=== PATIENT | male | born 1995 | race African-American/Black ===

== ENCOUNTER 2019-10-29 12:44 | Emergency (ER) | payer SELFPAY ==
[~2019-10-29] VITALS: Ht 180.3 cm; Wt 85.0 kg
--- NOTE | 2019-10-29 13:36 | RAD ---
Examination: PORTABLE CHEST 1V History: Reason: WEAKNESS / Spl. Instructions: / History: Comparison/Correlation: None Findings: Portable upright frontal view chest was obtained. Heart size and pulmonary vessels are normal. No infiltrate or pleural effusion. No pneumothorax. Bony structures are unremarkable. Impression: No active disease. Electronically signed by: Rafael Zarco MD (10/29/2019 1:33 PM) [id number]
[2019-10-29 13:54] LABS: CALCIUM 8.3 mg/dL (8.5-10.1); GFR 113.1; POTASSIUM 3.6 mmol/L (3.5-5.1)
[2019-10-29 13:55] LABS: BASO # 0.1 x10^3/uL (0.0-0.2); BASO % 1 % (0-3); EOS # 0.4 x10^3/uL (0.0-0.7); EOS % 4 % (0-3); HEMATOCRIT 36.4 % (39.0-53.0); HEMOGLOBIN 12.9 g/dL (13.0-17.5); LYMPH # 2.5 x10^3/uL (1.0-4.8); LYMPH % 25 % (24-48); MEAN CORPUSCULAR HEMOGLOBIN 31 pg (25-35); MEAN CORPUSCULAR HGB CONC 35 g/dL (31-37); MEAN CORPUSCULAR VOLUME 89 fL (79-100); MONO # 1.3 x10^3/uL (0.0-1.1); MONO % 13 % (0-9); NEUT # 5.6 x10^3/uL (1.8-7.7); NEUT % 57 % (31-73); PLATELET COUNT 267 x10^3/uL (140-400); RED BLOOD COUNT 4.09 x10^6/uL (4.30-5.70); RED CELL DISTRIBUTION WIDTH 12.1 % (11.5-14.5); WHITE BLOOD COUNT 9.8 x10^3/uL (4.0-11.0)
[2019-10-29 14:01] LABS: ALBUMIN 3.3 g/dL (3.4-5.0); ALBUMIN/GLOBULIN RATIO 1.1 (1.0-1.7); C-REACTIVE PROTEIN 25.3 mg/L (0-3.3); TOTAL BILIRUBIN 6.4 mg/dL (0.2-1.0); TOTAL PROTEIN 6.4 g/dL (6.4-8.2)
[2019-10-29 15:05] LABS: % ATYL 3 % (0-0); % BANDS 13 % (0-9); % EOS 4 % (0-5); % LYMPHS 26 % (24-48); % MONOS 11 % (0-10); % SEGS 43 % (35-66)
[2019-10-29 15:06] LABS: PLT ESTIMATE ADEQUATE (ADEQUATE)
[2019-10-29] MEDS ORDERED: IOHEXOL 350 MG/ML 100 ML VIAL. IV ONE (15:15)
[2019-10-29] MEDS ORDERED: CONTRAST GIVEN. MC PRN (15:30)
[2019-10-29 16:25] LABS: BILIRUBIN,URINE LARGE (NEG); CLARITY,URINE CLEAR; PH,URINE 7.5 (<5.0-8.0); PROTEIN,URINE 30 mg/dL (NEG-TRACE)
[2019-10-29 16:27] LABS: COLOR,URINE AMBER
[2019-10-29 16:33] LABS: BACTERIA,URINE 0 /HPF (0-FEW); RBC,URINE 0 /HPF (0-2); WBC,URINE OCC /HPF (0-4)
[2019-10-29] MEDS ORDERED: IV NORMAL SALINE 1000ML BAG 1,000 ML IV ONE ×2 (17:00→18:15)
[2019-10-29 17:18] LABS: DIRECT BILIRUBIN 5.3 mg/dL (0.0-0.2)
[2019-10-29 17:22] LABS: MONONUCLEOSIS PATIENT NEGATIVE (NEGATIVE)
--- NOTE | 2019-10-29 17:28 | RAD ---
ABDOMEN LTD History: Elevated liver function tests Comparison: None. Findings: Multiple sonographic images of the abdomen are submitted. There is no abnormality of the visualized pancreas, tail not as well-visualized due to bowel gas. Right kidney measured 12.2 x 5.9 x 4.2 cm, no hydronephrosis. Gallbladder is present, filled with internal echogenicity likely due to sludge and gallstones. There is no pericholecystic fluid. Hepatic echogenicity is within normal limits. Right lobe of the liver measured 15.7 cm longitudinal. Common bile duct duct is within normal limits about 0.5 cm. There is segmental visualization of the inferior vena cava. Impression: 1. Gallbladder is filled with echogenicity likely due to sludge and gallstones, no biliary ductal dilatation. Electronically signed by: Brayan Churchill MD (10/29/2019 5:25 PM) [facility]
[2019-10-29] MEDS ORDERED: GUAI118L13 PO (18:00)
[2019-10-29] MEDS ORDERED: ONDA4TAB7 PO (18:00)
--- NOTE | 2019-10-29 18:00 | PHYS DOC ---
Past Medical History Past Medical History: No Pertinent History Past Surgical History: No Surgical History Smoking Status: Never Smoker Alcohol Use: None General Adult EDM: Chief Complaint: WEAKNESS/GENERALIZED HPI: HPI: Patient is a 24 year old previously healthy male who presents with sore throat, cough, body aches, fever, nausea, vomiting, diarrhea, abdominal pain. Patient initially started feeling bad about a week ago. This is his third visit to the hospital for the symptoms. He has had multiple negative coronavirus tests in the past week. He has had a CT angiogram at [facility] that was -2 days ago. He states he continues to feel bad and worn down. He started having belly problems this morning. He states he is able to walk long distances without any difficulty. Review of Systems: Review of Systems: General: Reports fever, chills, sweats, fatigue Eyes: Denies drainage, blurred vision, eye redness HENT: Reports rhinorrhea, sore throat, earache Respiratory: Reports cough, shortness of breath, wheezing Cardiac: Denies edema, palpitations. Reports chest pain GI: Reports nausea, vomiting, diarrhea, abdominal pain MSK: Denies neck pain, back pain Skin: Denies rash, jaundice Neuro: Denies headache, dizziness Psychiatric: Denies SI/HI Heart Score: Risk Factors: Risk Factors: DM, Current or recent (<one month) smoker, HTN, HLP, family history of CAD, obesity. Risk Scores: Score 0 - 3: 2.5% MACE over next 6 weeks - Discharge Home Score 4 - 6: 20.3% MACE over next 6 weeks - Admit for Clinical Observation Score 7 - 10: 72.7% MACE over next 6 weeks - Early Invasive Strategies Current Medications: Current Medications Medications (Trade) Dose Ordered Sig/Ranjana Start Time Stop Time Status Last Admin Dose Admin Info (CONTRAST GIVEN -- Rx MONITORING) 1 each PRN DAILY PRN 10/29/19 15:30 10/31/19 15:29 Iohexol (Omnipaque 350 Mg/ml) 100 ml 1X ONCE 10/29/19 15:15 10/29/19 15:16 DC Sodium Chloride 1,000 ml @ 1,000 mls/hr 1X ONCE 10/29/19 17:00 10/29/19 17:59 Allergies: Allergies: Allergies Coded Allergies Type Severity Reaction Last Updated Verified No Known Drug Allergies 10/29/19 No Physical Exam: PE: General: Awake, alert, NAD. Well Nourished, well hydrated. Cooperative HEENT: Atraumatic, EOMI, PERRL, airway patent, moist oral mucosa Neck: Supple, trachea midline, lymphadenopathy Respiratory: CTA bilaterally, normal effort, no wheezing/crackles CV: RRR, no murmur, cap refill <2 GI: Soft, nondistended, minimal tenderness, no masses MSK: No obvious deformities Skin: Warm, dry, intact Neuro: A&O x3, speech NL, sensory and motor grossly intact, no focal deficits Psych: Normal affect, normal mood, not suicidal or homicidal Current Patient Data: Labs: Laboratory Tests Test 10/29/19 13:30 10/29/19 16:15 White Blood Count 9.8 x10^3/uL (4.0-11.0) Red Blood Count 4.09 x10^6/uL (4.30-5.70) L Hemoglobin 12.9 g/dL (13.0-17.5) L Hematocrit 36.4 % (39.0-53.0) L Mean Corpuscular Volume 89 fL (79-100) Mean Corpuscular Hemoglobin 31 pg (25-35) Mean Corpuscular Hemoglobin Concent 35 g/dL (31-37) Red Cell Distribution Width 12.1 % (11.5-14.5) Platelet Count 267 x10^3/uL (140-400) Neutrophils (%) (Auto) 57 % (31-73) Lymphocytes (%) (Auto) 25 % (24-48) Monocytes (%) (Auto) 13 % (0-9) H Eosinophils (%) (Auto) 4 % (0-3) H Basophils (%) (Auto) 1 % (0-3) Neutrophils # (Auto) 5.6 x10^3/uL (1.8-7.7) Lymphocytes # (Auto) 2.5 x10^3/uL (1.0-4.8) Monocytes # (Auto) 1.3 x10^3/uL (0.0-1.1) H Eosinophils # (Auto) 0.4 x10^3/uL (0.0-0.7) Basophils # (Auto) 0.1 x10^3/uL (0.0-0.2) Segmented Neutrophils % 43 % (35-66) Band Neutrophils % 13 % (0-9) H Lymphocytes % 26 % (24-48) Atypical Lymphocytes % (Manual) 3 % (0-0) H Monocytes % 11 % (0-10) H Eosinophils % 4 % (0-5) Platelet Estimate Adequate (ADEQUATE) D-Dimer (Park) 1.59 ug/mlFEU (0.00-0.50) H Sodium Level 136 mmol/L (136-145) Potassium Level 3.6 mmol/L (3.5-5.1) Chloride Level 100 mmol/L (98-107) Carbon Dioxide Level 27 mmol/L (21-32) Anion Gap 9 (6-14) Blood Urea Nitrogen 8 mg/dL (8-26) Creatinine 1.0 mg/dL (0.7-1.3) Estimated GFR (Cockcroft-Gault) 113.1 BUN/Creatinine Ratio 8 (6-20) Glucose Level 99 mg/dL (70-99) Calcium Level 8.3 mg/dL (8.5-10.1) L Total Bilirubin 6.4 mg/dL (0.2-1.0) H Direct Bilirubin 5.3 mg/dL (0.0-0.2) H Aspartate Amino Transferase (AST) 102 U/L (15-37) H Alanine Aminotransferase (ALT) 152 U/L (16-63) H Alkaline Phosphatase 112 U/L (46-116) Lactate Dehydrogenase 397 U/L (85-227) H Creatine Kinase 67 U/L (39-308) C-Reactive Protein, Quantitative 25.3 mg/L (0-3.3) H Total Protein 6.4 g/dL (6.4-8.2) Albumin 3.3 g/dL (3.4-5.0) L Albumin/Globulin Ratio 1.1 (1.0-1.7) Heterophil Agglutinins Negative (NEGATIVE) Urine Collection Type Unknown Urine Color Regi Urine Clarity Clear Urine pH 7.5 (<5.0-8.0) Urine Specific Thorp >=1.030 (1.000-1.030) Urine Protein 30 mg/dL (NEG-TRACE) Urine Glucose (UA) Negative mg/dL (NEG) Urine Ketones (Stick) >=80 mg/dL (NEG) Urine Blood Negative (NEG) Urine Nitrite (NEG) Urine Bilirubin Large (NEG) Urine Urobilinogen Dipstick 4.0 mg/dL (0.2 mg/dL) Urine Leukocyte Esterase (NEG) Urine RBC 0 /HPF (0-2) Urine WBC Occ /HPF (0-4) Urine Bacteria 0 /HPF (0-FEW) Urine Mucus Marked /LPF Laboratory Tests 10/29/19 13:30 Laboratory Tests 10/29/19 13:30 Vital Signs: Vital Signs Date Time Temp Pulse Resp B/P (MAP) Pulse Ox O2 Delivery O2 Flow Rate FiO2 10/29/19 15:16 78 100 10/29/19 13:00 99.6 18 106/64 (78) Room Air 99.6 EKG: EKG: [] Radiology/Procedures: Radiology/Procedures: [] Course & Med Decision Making: Course & Med Decision Making Pertinent Labs and Imaging studies reviewed. (See chart for details) Patient is 24-year-old male presents to the emergency room complaining of abdominal and URI complaints. Patient has had multiple coronavirus tests in the past week that have been negative. It is still possible that he could have coronavirus and I have discussed this with him. We have discussed that he will need to stay on quarantine until he is feeling better or we have an alternative explanation for his symptoms. Patient symptoms could also be related to Danni-Schneider virus. Patient has atypical lymphocytes in his blood smear which is suggestive of mono. He has elevated liver enzymes which is also suggestive of mono. My suspicion is that this is related to Danni-Schneider and it is less likely that this is related to coronavirus. He does have a pending coronavirus test. I have discussed with him that he should not participate in any contact sports and should seek medical care if he were to get into a major car accident due to the possibility of splenomegaly with mono. We have discussed that this is infectious for other people and he should not be sharing food or drinks. We discussed that he can pass it to anybody he is kissing. At this time he would like to go home and follow-up. He will be treated symptomatically and placed on quarantine. Patient's test results and vitals while in the ED were fully reviewed and discussed with the patient. Patient is stable and at this time does not need admission to the hospital. We have discussed strict return precautions and the importance of following up with their Primary Care Physician. Patient stated understanding and was given an opportunity to ask any questions. Patient is in agreement with plan. Dragon Disclaimer: Dragon Disclaimer: This electronic medical record was generated, in whole or in part, using a voice recognition dictation system. Departure Departure Impression: Primary Impression: Mononucleosis Additional Impression: Hepatitis Disposition: 01 HOME, SELF-CARE Condition: GOOD Referrals: NO PCP (PCP) Patient Instructions: Infectious Mononucleosis, [id number] Additional Instructions: Thank you for visiting [facility]. We appreciate you trusting us with your care. If any additional problems come up please don't hesitate to return to visit us. Follow up with your primary care provider so they can plan additional care if needed and know about the problem that you had today. If symptoms worsen come back to the Emergency Department. Any concerning symptoms that start such as chest pain, shortness of air, weakness or numbness on one side of the body, running high fevers or any other concerning symptoms return to the ER. You have a viral syndrome which may include symptoms like muscle aches, fevers, chills, runny nose, cough, sneezing, sore throat, nausea, vomiting, or diarrhea. One of the potential viruses that you may have is SARS-CoV-2, the virus that causes COVID-19, also known as the Coronavirus. You are just as likely to have a different viral infection such as the common cold, flu, etc. Most patients with the Coronavirus have mild symptoms and recover on their own. Resting, staying hydrated, and sleep based on known cases can be helpful. As of todays visit, you are well enough to go home and treat your symptoms with oral fluids and over the counter medications. Coronavirus testing is not performed on most people with mild symptoms who are being discharged from the emergency department. If Coronavirus testing was performed today the results will not be available for possibly up to 3-4 days. If your result is positive you will be contacted. Please follow the following precautions at home: 1. Stay home except to get medical care. 2. As advised by the CDC, we recommend that you stay in your home and minimize contact with other people. We do not want you to spread the infection. 3. Those who are older or have significant medical issues may have more severe symptoms from this infection. We recommend self-isolation FOR AT LEAST 7 DAYS after your 1st day of symptoms. AFTER you feel better please wait AT LEAST ANOTHER WEEK before returning to regular activities and being around other people. 4. IF you become sicker and have difficulty breathing, chest pain, are unable to eat/drink, severe vomiting, diarrhea, or weakness you may need to return to the Emergency Department. 5. You should restrict activities outside of your home, except for getting medical care. DO NOT go to work, school, or public areas. Avoid using public transportation, ride sharing, or taxis. 6. Separate yourself from other people in your home. You should use a separate bathroom if possible. 7. Avoid sharing personal household items such as dishes, cups, eating utensils, towels, etc. 8. Clean all high touch surfaces every day (door knobs, counter tops, etc). Use a household cleaning spray or wipe per label instructions. 9. Clean your hands often. Wash your hands with soap and water for at least 20 seconds. 10. Cover your mouth and nose when you cough or sneeze. 11. Throw used tissues in the trash and immediately wash your hands. For additional resources please visit the CDC website or the [facility] ([phone]), you may also call 211 for further information. Scripts Ondansetron Hcl (ZOFRAN) 4 Mg Tablet 1 TAB PO PRN Q6-8HRS PRN for NAUSEA, #12 TAB Prov: AI HERNANDEZ MD 10/29/19 Guaifenesin/Codeine Phosphate (GUAIFENESIN-CODEINE SYRUP) 118 Ml Liquid 5 ML PO Q6HRS, #120 ML Prov: AI HERNANDEZ MD 10/29/19 Justicifation of Admission Dx: Justifications for Admission: Justification of Admission Dx: Yes AI HERNANDEZ MD Oct 29, 2019 18:00
[2019-10-29] MEDS ORDERED: ACETAMINOPHEN 500 MG TABLET PO ONE (18:15)
[2019-10-29 20:21] VITALS: BP 132/53
== END 2019-10-29 20:21 | disposition home or self-care (01) ==
LOC: ER 12:44
DX: B27.90 Infectious mononucleosis, unspecified without complication (principal); Z20.828 Contact with and (suspected) exposure to other viral communicable diseases; K75.9 Inflammatory liver disease, unspecified; R50.9 Fever, unspecified; R05 Cough; R11.2 Nausea with vomiting, unspecified; R19.7 Diarrhea, unspecified; R10.9 Unspecified abdominal pain
CPT/HCPCS: 36415; 71045; 76705; 80053; 81001; 82248; 82550; 83615; 85007; 85025; 85379; 86140; 86308; 87798; 96360; 96361; 99285; J7030; U0003